=== PATIENT | male | born 1950 | race Caucasian/White ===

== ENCOUNTER 2017-02-28 11:19 | Outpatient (CLI) | payer MEDICARE, OTHER ==
[2015-03-24 12:43] VITALS: BP 187/78
== END 2017-02-28 11:20 ==
LOC: LAB 11:19
PROVIDERS: ATTEND Internal Medicine
DX: E11.8 Type 2 diabetes mellitus with unspecified complications (principal); M79.1 Myalgia
CPT/HCPCS: 36415; 83036; 84550; 85651; 86431